=== PATIENT | male | born 1960 | race Caucasian/White ===

== ENCOUNTER 2024-06-11 11:03 | Outpatient (AMB) | payer OTHER, SELFPAY ==
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
[2024-06-11 11:06] VITALS: BP 148/94; PULSE 94; TEMP 36.8; O2SAT 98; BMI 34.5
--- OUTSIDE RECORDS SUMMARY | 2024-06-11 11:06 | XMS_ITS | Continuity of Care Document ---
Author Organization [facility] ter Address [address] [place] [address]- Care Team Providers Care Technical Marketing Engineer Name Role Phone Cb Selby Primary Care Physician [phone] Encounter [facility] [place] Date(s): 11/03/23 - 11/03/[address] [address]- Encounter Diagnosis Dyspnea on exertion(Final) - 11/03/23 Discharge Disposition: A-D/C Home Attending Physician: Haydee Shi MD Admitting Physician: Haydee Shi MD Referring Physician: Not on Staff, Referring MD Allergies, Adverse Reactions, Alerts Substance Reaction Severity Status morphine Active Immunizations Given and Recorded Vaccine Date Status Refusal Reason SARS-CoV-2 (COVID-19) mRNA BNT-162b2 vac 03/24/21 Given SARS-CoV-2 (COVID-19) mRNA BNT-162b2 vac 03/03/21 Given Medications albuterol CFC free 90 mcg/inh inhalation aerosol 2, puffs, Inhalation, Every 4 hours, PRN, # 1 each, Refills 0, Tot. Refills 0, Maintenance, 11/20/18 19:42:57 EST, Aerosol, Route to Pharmacy Electronically, [id number], [facility]/pharmacy #[id number], [place] Start Date: 11/20/18 Status: Ordered Mary Ann-D 24 Hour Allergy & Congestion 180 mg-240 mg oral tablet, extended release 1 tablet, By Mouth, Daily, 0 Refills, Maintenance, 05/24/22 7:15:00 EDT, Partial fill upon patient request if the prescription is for a schedule II opioid drug. Start Date: 05/24/22 Status: Ordered allopurinol 300 mg oral tablet 300 mg, 1, tablet, By Mouth, Daily, # 15 tablet, Refills 0, Maintenance, 05/24/22 7:14:00 EDT, Partial fill upon patient request if the prescription is for a schedule II opioid drug. Start Date: 05/24/22 Status: Ordered aspirin 81 mg oral delayed release tablet 81 mg, 1, tablet, By Mouth, Daily, # 30 tablet, Refills 0, Maintenance, 05/24/22 7:15:00 EDT, Partial fill upon patient request if the prescription is for a schedule II opioid drug. Start Date: 05/24/22 Status: Ordered hydrochlorothiazide-losartan 25 mg-100 mg oral tablet 1 tablet, By Mouth, Daily, # 30 tablet, 0 Refills, Maintenance, 05/24/22 7:14:00 EDT, Tablet, Partial fill upon patient request if the prescription is for a schedule II opioid drug. Start Date: 05/24/22 Status: Ordered Multivitamin Daily, 0 Refills, Maintenance, 05/24/22 7:15:00 EDT, Partial fill upon patient request if the prescription is for a schedule II opioid drug. Start Date: 05/24/22 Status: Ordered rosuvastatin 40 mg oral capsule 1 capsule = 40 mg, By Mouth, Daily, # 30 capsule, 0 Refills, Maintenance, 05/24/22 7:15:00 EDT, Capsule, Partial fill upon patient request if the prescription is for a schedule II opioid drug. Start Date: 05/24/22 Status: Ordered Vitamin C 500 mg oral tablet 1 tablet = 500 mg, By Mouth, Daily, # 30 tablet, 0 Refills, Maintenance, 05/24/22 7:16:00 EDT, Tablet, Partial fill upon patient request if the prescription is for a schedule II opioid drug. Start Date: 05/24/22 Status: Ordered Results Radiology Reports * Exam Date Time Procedure Performing Provider Status 11/03/23 12:58 PM Chest 2 Views Frontal and Lat Karmen Lester; Hoda (Verified) Notes: (Chest 2 Views Frontal and Lat) Reason For Exam: Chest Pain;Other: RESULT: Chest 2 Views Frontal and Lat Chest 2 Views Frontal and Lat Reason: Other:; Chest Pain; Clinical Question(s): Other: COMPARISON: 12/20/2022 FINDINGS: LINES AND TUBES: None. LUNGS AND PLEURA: Clear lungs. Normal pulmonary vascularity. No pleural effusion. No pneumothorax. HEART, MEDIASTINUM AND MARIANO: Heart is normal in size. Normal mediastinal and hilar contour. BONES AND SOFT TISSUES: No acute abnormality. IMPRESSION: No acute abnormality. WSN: [id number] Ordering Physician: Victor Hugo Mosley Dictated By: Yusra Thornton MD Dictated Date/Time: 11/03/23 12:59 p Reviewed By: Yusra Thornton MD Signed By: Yusra Thornton MD Signed Date/Time: 11/03/23 12:59 pm Transcribed By: ANTONIETTA Transcribed Date/Time: 11/03/23 12:59 pm Vital Signs Most recent to oldest [Reference Range]: 1 2 3 Height 166 cm (11/03/23 4:10 PM) 166 cm (11/03/23 12:45 PM) Oxygen Saturation [94-100 %] 97 % (11/03/23 4:10 PM) 99 % (11/03/23 1:38 PM) 100 % (11/03/23 12:45 PM) Pulse Rate [55-90 bpm] 90 bpm (11/03/23 4:10 PM) 103 bpm *H* (11/03/23 1:38 PM) 107 bpm *H* (11/03/23 12:45 PM) Blood Pressure [90-138/55-84 mm Hg] 146/82mm Hg *H* (11/03/23 4:10 PM) 178/79mm Hg *H* (11/03/23 1:38 PM) 181/78mm Hg *H* (11/03/23 12:45 PM) Respiratory Rate [16-30 br/min] 20 br/min (11/03/23 4:10 PM) 18 br/min (11/03/23 1:38 PM) 22 br/min (11/03/23 12:41 PM) Temperature [96.8-100.4 DegF] 98.8 DegF (11/03/23 4:10 PM) 97.7 DegF (11/03/23 1:38 PM) 97.9 DegF (11/03/23 12:45 PM) Mode of Delivery (Oxygen) Room air (11/03/23 4:10 PM) Room air (11/03/23 1:38 PM) Room air (11/03/23 12:45 PM) Blood pressure sites Arm, right (11/03/23 4:10 PM) Arm, right (11/03/23 1:38 PM) Arm, left (11/03/23 12:45 PM) Temperature Route Oral (11/03/23 4:10 PM) Oral (11/03/23 1:38 PM) Oral (11/03/23 12:45 PM) Dry Weight 118 kg (11/03/23 4:10 PM) 118 kg (11/03/23 12:45 PM) Dry Weight Obtained Via Patient/family s tated (11/03/23 12:45 PM) Note * Tracey Quick NP: PERFORM Event Display: Patient Education Leaflets Authored Date: [id number] Noncardiac Chest Pain ?? [id number] Noncardiac Chest Pain In most cases, people who come to the emergency room with chest pain don???t have a problem with their heart. Instead, the pain is caused by other conditions. It's important for the healthcare team to be sure you are not having a life-threatening cause for chest pain such as: ??? Heart attack ??? Blood clot in the lungs ??? Collapsed lung ??? Ruptured esophagus ??? Tearing of the aorta Once these major causes have been ruled out, you may have further evaluation for other causes of chest pain. These may be problems with the lungs, muscles, bones, digestive tract, nerves, or mental health. They include: ??? Inflammation around the lungs (pleurisy) ??? Collapsed lung (pneumothorax) ??? Lung inflammation (pleuritis or pneumonitis) ??? Fluid around the lung (pleural effusion) ??? Lung cancer (rare cause of chest pain) ??? Inflamed cartilage between the ribs (costochondritis) ??? Fibromyalgia ??? Rheumatoid arthritis ??? Chest wall strain ??? Reflux ??? Stomach ulcer ??? Spasms of the esophagus ??? Gall stones ??? Gallbladder inflammation ??? Panic or anxiety attacks ??? Emotional distress Your pain doesn???t seem to be coming from your heart. But sometimes the signs of a serious problemtake more time to appear. Continue to watch for the warning signs listed below. Home care Follow these guidelines when caring for yourself at home: ??? Rest today and don't do any strenuousactivity. ??? Take any prescribed medicine as directed. ?? Follow-up care Follow up with your healthcare provider as advised. ?? Call 911 Call 911 if any of these occur: ??? A change in the type of pain: if it feels different, becomes more severe, lasts longer, or begins to spread into your shoulder, arm, neck, jaw or back ??? Shortness of breath or increased pain with breathing ??? Weakness, dizziness, or fainting ??? Rapid heart beat ??? Crushing sensation in your chest ?? When to seek medical advice Call your healthcare provider right away if any of these occur: ??? Cough with dark colored sputum (phlegm) or blood ??? Fever of 100.4??F (38??C) or higher, or as directed by your healthcare provider ??? Swelling, pain or redness in one leg ?? Last Reviewed Date: 2021 ?? [id number] The [employer]. All rights reserved. This information is not intended as a substitute for professional medical care. Always follow your healthcare professional's instructions. ?? * Tracey Quick NP: PERFORM Event Display: Patient Education Leaflets Authored Date: [id number] Uncertain Causes of Chest Pain ?? [id number] Uncertain Causes of Chest Pain Chest pain can happen for a number of reasons. Sometimes the cause can't be determined. If your??condition does not seem serious, and your pain does not appear to be coming from your heart, your healthcare provider may recommend watching it closely. Sometimes the signs of a serious problem take more time to appear. Many problems not related to your heart can cause chest pain. These include: ??? Musculoskeletal. Costochondritis is an inflammation of the tissues around the ribs that can occur from trauma or overuse injuries, or a strain of the muscles of the chest wall. ??? Respiratory. Pneumonia, collapsed lung (pneumothorax), or inflammation of the lining of the chest and lungs (pleurisy). ??? Gastrointestinal. Esophageal reflux, heartburn, ulcers, or gallbladder disease. ??? Anxiety and panic disorders ??? Nerve compression and inflammation ??? Rare problems such as aortic aneurysm or aortic dissection (a swelling of the large artery coming out of the heart or a tear in the wall of the artery), or pulmonary embolism (a blood clot in the lungs). Home care After your visit, follow these recommendations: ??? Rest today and avoid strenuous activity. ??? Take any prescribed medicine as directed. ??? Be aware of any recurrent chest pain and notice any changes ?? Follow-up care Follow up with your healthcare provider if you don't start to feel better within 24 hours, or as advised. ?? Call 911 Call 911 if any of these occur: ??? A change in the type of pain: if it feels different, becomes more severe, lasts longer, or begins to spread into your shoulder, arm, neck, jaw or back ??? Shortness of breath or increased pain with breathing ??? Weakness, dizziness, or fainting ??? Rapid heartbeat ??? Crushing sensation in your chest ??? Coughing up more than a small amount of blood. ?? When to seek medical advice Call your healthcare provider right away if any of the following occur: ??? Cough with dark coloredsputum (phlegm) or small amount of blood ??? Fever of 100.4??F??(38??C) or higher, or as directed by your healthcare provider ??? Swelling, pain or redness in one leg ?? Last Reviewed Date: 2021 ?? [id number] [employer]. All rights reserved. This information is not intended as a substitute for professional medical care. Always follow your healthcare professional's instructions. ?? Patient Care team information Care Team Personnel Name: Farhat Land DO Position: [facility] Renal MD Member Role: Lifetime Consulting Physician Address: Address: [address] [place] [address] [address] [facility] [place] [place] [address]- Name: Cb Selby Position: Reference Physician Member Role: PCP Address: Address: [address] [place] [address]- [place] Name: Haydee Shi MD Position: [facility] ED Medicine MD Member Role: Admitting Physician Address: Address: [address] [facility] [place] [address]- Name: Shonda Lindquist RN Position: [facility] ED RN W/OE and Tasks Member Role: Patient Care Provider Name: Tracey Quick NP Position: S Associate Professional Member Role: ED Physician Elevator Runner Address: Address: [address] [place] [address] [place] [address]- Care Team Related Persons Name: KHADIJAH BAZAN Address: home [address] [place] [address]
--- OUTSIDE RECORDS SUMMARY | 2024-06-11 11:06 | XMS_ITS | Continuity of Care Document ---
Author Organization [facility] Address [address] [place] [address]- Care Team Providers Care Mushroom Packer Name Role Phone Deisy PINEDA, Woody Hayes Primary Care Physician [place] [facility] [place] 12/08/19 - 12/18/19 [facility] [address] [place] [address] [place] Attending Physician: Admtr, Ar8 Admitting Physician: Admtr, Ar8 Referring Physician: Admtr, Ar8 Allergies, Adverse Reactions, Alerts Substance Reaction Severity Status morphine Active Medications albuterol CFC free 90 mcg/inh inhalation aerosol 2, puffs, Inhalation, Every 4 hours, PRN, # 1 each, Refills 0, Tot. Refills 0, Maintenance, 11/20/18 19:42:57 EST, Aerosol, Route to Pharmacy Electronically, [id number], [facility]/pharmacy #[id number], [place] Start Date: 11/20/18 Status: Ordered
--- OUTSIDE RECORDS SUMMARY | 2024-06-11 11:06 | XMS_ITS | Continuity of Care Document ---
Author Organization [facility] ter Address [address] [place] [address]- Care Team Providers Care Movie Extra Name Role Phone Deisy PINEDA, Woody Hayes Primary Care Physician [phone] [place]counter [facility] [place] Date(s): 05/24/22 - 05/24/[address] [address]- Encounter Diagnosis Dehydration(Final) - 05/24/22 Discharge Disposition: A-D/C Home Attending Physician: Kimberly Huang MD Admitting Physician: Edna Montgomery MD Referring Physician: Not on Staff, Referring [...] 19:42:57 EST, Aerosol, Route to Pharmacy Electronically, [id number], [facility]/pharmacy #[id number], [place] Start Date: 11/20/18 Status: [...] Exam Date Time Procedure Performing Provider Status 05/23/22 9:28 PM Chest 2 Views Frontal and Lat Yoel Araya; Hoda (Verified) Notes: (Chest 2 Views Frontal and Lat) Reason For Exam: Chest Pain;Other: RESULT: Chest 2 Views Frontal and Lat Chest 2 Views Frontal and Lat Hx of Present Illness: Pt sts he felt fine this afternoon, went upstairs to work and the air conditioner was not on as it usually he is. He thought it would be ok and began working. His came home to find him unresponsive. Pt does not recall any other details.; Reason: Other:; Chest Pain; Clinical Question(s): Other: COMPARISON: 05/19/2006 FINDINGS: LINES AND TUBES: None. LUNGS AND PLEURA: Low lung volumes with mild basilar atelectasis. Lungs are otherwise clear with no consolidation. No pleural effusion. No pneumothorax. HEART, MEDIASTINUM AND MARIANO: Heart is normal in size. Normal upper mediastinal and hilar contour. BONES AND SOFT TISSUES: No acute abnormality. IMPRESSION: No acute abnormality. WSN: [id number] Ordering Physician: Haydee Shi Dictated By: Brandt Smith MD Dictated Date/Time: 05/23/22 9:53 pm Reviewed By: Brandt Smith MD Signed By: Brandt Smith MD Signed Date/Time: 05/23/22 9:53 pm Transcribed By: ANTONIETTA Transcribed Date/Time: 05/23/22 9:53 pm Vital Signs Most recent to oldest [Reference Range]: 1 2 3 Oxygen Saturation [94-100 %] 98 % (05/24/22 4:00 PM) 98 % (05/24/22 7:19 AM) 97 % (05/24/22 6:01 AM) Pulse Rate [55-90 bpm] 74 bpm (05/24/22 4:00 PM) 75 bpm (05/24/22 7:19 AM) 78 bpm (05/24/22 6:01 AM) Blood Pressure [90-138/55-84 mm Hg] 123/60mm Hg (05/24/22 4:00 PM) 113/52mm Hg (05/24/22 7:19 AM) 133/64mm Hg (05/24/22 6:01 AM) Respiratory Rate [16-30 br/min] 18 br/min (05/24/22 4:00 PM) 20 br/min (05/24/22 7:19 AM) 18 br/min (05/24/22 6:01 AM) Temperature [96.8-100.4 DegF] 97.5 DegF (05/24/22 4:00 PM) 98.5 DegF (05/24/22 7:19 AM) 99.4 DegF (05/24/22 12:16 AM) Mode of Delivery (Oxygen) Room air (05/24/22 4:00 PM) Room air (05/24/22 7:19 AM) Room air (05/24/22 6:01 AM) Blood pressure sites Arm, right (05/24/22 4:00 PM) Arm, right (05/24/22 7:19 AM) Arm, left (05/24/22 6:01 AM) Temperature Route Oral (05/24/22 4:00 PM) Oral (05/24/22 7:19 AM) Temporal (05/24/22 12:16 AM) Weight Obtained Via UTO (05/23/22 8:09 PM) Dry Weight Obtained Via UTO (05/23/22 8:09 PM)
--- OUTSIDE RECORDS SUMMARY | 2024-06-11 11:06 | XMS_ITS | Continuity of Care Document ---
Author Organization [facility] Address [address] [place] [address]- Care Team Providers Care Gaming Cage Cashier Name Role Phone Deisy PINEDA, Woody Hayes Primary Care Physician Encounter [facility] [place] Date(s): 09/09/19 - 01/07/20 [facility] [address] [place] [address] [facility] Attending Physician: Erick PINEDA, Tino Tavarez Referring Physician: Cb Selby Allergies, Adverse Reactions, Alerts Substance Reaction Severity Status morphine Active Medications albuterol CFC free 90 mcg/inh inhalation aerosol 2, puffs, Inhalation, Every 4 hours, PRN, # 1 each, Refills 0, Tot. Refills 0, Maintenance, 11/20/18 19:42:57 EST, Aerosol, Route to Pharmacy Electronically, [id number], [facility]/pharmacy #[id number], [place] Start Date: 11/20/18 Status: Ordered
== END 2024-06-11 11:52 | disposition home or self-care (01) ==
PROVIDERS: PCP Internal Medicine; Visit Provider Nurse Practitioner Family
DX: M54.2 Cervicalgia (principal); V49.40XA Driver injured in collision with unspecified motor vehicles in traffic accident, initial encounter; Z04.2 Encounter for examination and observation following work accident
CPT/HCPCS: 99214

== ENCOUNTER 2024-06-11 11:22 | Outpatient (REF) | payer OTHER, SELFPAY ==
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
== END 2024-06-11 11:23 | disposition home or self-care (01) ==
LOC: HO.HMGCX 11:22
PROVIDERS: PCP Physician Assistant Medical; Visit Provider Nurse Practitioner Family
DX: M54.2 Cervicalgia (principal)
CPT/HCPCS: 72040